=== PATIENT | female | born 1950 | race Caucasian/White ===

== ENCOUNTER → 2023-08-17 10:43 | Outpatient (REF) | payer MEDICARE, OTHER, SELFPAY | LOC: HWRAD 10:43 | PROVIDERS: ATTENDING PHYSICIAN Internal Medicine Gastroenterology; FAMILY PHYSICIAN Internal Medicine Geriatric Medicine | DX: K76.0 Fatty (change of) liver, not elsewhere classified (principal) | CPT/HCPCS: 76700 ==

== ENCOUNTER → 2023-08-30 06:36 | Day surgery (SDC) | payer MEDICARE, OTHER, SELFPAY | LOC: GI 06:36 | PROVIDERS: ATTENDING PHYSICIAN Internal Medicine Gastroenterology; FAMILY PHYSICIAN Internal Medicine Geriatric Medicine | DX: Z12.11 Encounter for screening for malignant neoplasm of colon (principal); K57.30 Diverticulosis of large intestine without perforation or abscess without bleeding; K64.8 Other hemorrhoids; D12.2 Benign neoplasm of ascending colon | CPT/HCPCS: 45385; 88305 ==

== ENCOUNTER → 2024-03-27 13:27 | Outpatient (REF) | payer MEDICARE, OTHER, SELFPAY | LOC: HWRAD 13:27 | PROVIDERS: ATTENDING PHYSICIAN Internal Medicine Geriatric Medicine | DX: Z00.00 Encounter for general adult medical examination without abnormal findings (principal); E78.5 Hyperlipidemia, unspecified; K21.9 Gastro-esophageal reflux disease without esophagitis; R91.1 Solitary pulmonary nodule; Z23 Encounter for immunization; E03.9 Hypothyroidism, unspecified; E66.9 Obesity, unspecified; E55.9 Vitamin D deficiency, unspecified; M76.32 Iliotibial band syndrome, left leg; R05.3 Chronic cough; M16.12 Unilateral primary osteoarthritis, left hip | CPT/HCPCS: 73200; 73502 ==

== ENCOUNTER → 2025-04-23 14:08 | Outpatient (REF) | payer MEDICARE, OTHER, SELFPAY | LOC: WDC 14:08 | PROVIDERS: ATTENDING PHYSICIAN Internal Medicine Geriatric Medicine | DX: Z12.31 Encounter for screening mammogram for malignant neoplasm of breast (principal) | CPT/HCPCS: 77063; 77067 ==

== ENCOUNTER → 2025-05-18 07:08 | Outpatient (REF) | payer MEDICARE, OTHER, SELFPAY | LOC: HWCARD 07:08 | PROVIDERS: ATTENDING PHYSICIAN Orthopaedic Surgery; FAMILY PHYSICIAN Internal Medicine Geriatric Medicine | DX: Z01.818 Encounter for other preprocedural examination (principal) | CPT/HCPCS: 93005 ==

== ENCOUNTER 2025-06-11 06:52 | Emergency (ER) | payer MEDICARE, OTHER, SELFPAY ==
[2025-06-11] VITALS (7 sets, daily range): BP systolic 103–149; BP diastolic 67–74; BMI 30.7
--- NOTE | 2025-06-11 07:27 | ED.GENMED ---
History of Present Illness
General
Chief Complaint: Abdominal Symptoms
Source: patient
Exam Limitations: none
Time Seen by Provider: 06/11/25 07:27
History of Present Illness
History of Present Illness:
74-year-old female had hip replacement surgery done 3 days ago. This morning at 5 AM woke with epigastric pain. Lasted half an hour to 45 minutes. Resolved at [address] to the hospital symptoms recurred. Now resolved again. No chest
pain no shortness of breath no pleuritic pain no back pain arm pain or jaw pain. No shearing pain. No nausea vomiting or diaphoresis. History of hiatal hernia. Patient has been on aspirin and pain management.
Past History
Past History
ED Past Medical History: HTN and Hypothyroidism
ED Past Surgical History: Orthopedic
Social History
Tobacco: Non-smoker
Alcohol: None
Drug: None
Review of Systems
Review of Systems
All Other Systems: Not applicable
Constitutional: Denies fever
Respiratory: Reports no symptoms
Cardiac: Denies chest pain or syncope
Phy Exam
Physical Exam
Physical Exam:
GENERAL: Alert and oriented in no apparent distress
EYE: Orbits normal.
NECK: Supple
CARDIAC: Regular rate and rhythm without any obvious murmurs.
LUNGS: Clear breath sounds,normal
ABDOMEN: Soft, without focal tenderness or distention. Specifically no epigastric or right upper quadrant tenderness
NEUROLOGICAL: Alert and oriented , grossly non-focal
SKIN: Warm and dry, no rash or lesion, no discoloration, skin intact.
MUSCULOSKELETAL: Mild left lower extremity edema. Good distal pulses and color. Well-healing suture site
PSYCH: Normal and appropriate interaction.
Course
Orders/Labs/Results
Orders:
Orders
06/11/25 07:12
Electrocardiogram (*1) Urgent
Reason for Study: Abdominal Pain
EKG- Treatment ONCE
06/11/25 07:38
IV Insert/Care/Rem.- Treatment PRN
US Periph Venous LOWER Ext LT Urgent
Comment:
Reason For Exam: Post hip replacement. Left leg swelling
06/11/25 07:39
CR Obstruct Series W/pa Chest Urgent
Comment:
Reason For Exam: Epigastric pain
US Abdomen Complete/Upper Urgent
Comment:
Reason For Exam: Epigastric pain
06/11/25 10:16
Complete Blood Count/With Diff Urgent
Comprehensive Metabolic Panel Urgent
Lipase Urgent
Troponin I Urgent
Abnormal Lab Results
06/11/25
10:16
RBC 3.29 L 10^6/uL
(4.20-5.40)
Hgb 9.9 L g/dL
(12.0-16.0)
Hct 29.2 L %
(37.0-47.0)
Abs Immat Gran (auto) 0.1 H 10^3/uL
(0-0.05)
Absolute Neuts (auto) 7.2 H 10^3/uL
(1.4-6.5)
Absolute Monos (auto) 0.7 H 10^3/uL
(0.1-0.6)
Immature Gran % 0.7 H %
(0-0.5)
BUN 30 H mg/dl
(7-17)
Creatinine 1.1 H mg/dL
(0.6-1.0)
AST 70 H U/L
(14-36)
ALT 45 H U/L
(0-35)
06/11/25 10:16
06/11/25 10:16
Vital Signs
Initial and Last Documented VS:
Initial Vital Signs
Temp Pulse Resp BP Pulse Ox
98 F 85 16 116/69 98
06/11/25 07:07 06/11/25 07:07 06/11/25 07:07 06/11/25 07:07 06/11/25 07:07
Last Documented Vital Signs
Temp Pulse Resp BP Pulse Ox
98 F 78 22 149/70 95
06/11/25 07:07 06/11/25 07:45 06/11/25 07:45 06/11/25 07:44 06/11/25 07:45
MDM/Problems Addressed
Differential Diagnosis Includes:
Patient with transient epigastric pain. Currently resolved. Highly doubt cardiac but will do cardiac testing and repeat troponin in 3 hours for completeness. Highly doubt pulmonary emboli. Symptoms have resolved they are nonpleuritic there is no
shortness of breath is very specifically epigastric in nature which would be atypical. She is not tachycardic she is not tachypneic she has a normal pulse ox. Do not feel CT of the chest is warranted. We will however do a leg ultrasound for
completeness. Highly doubt significant abdominal process. Her abdomen is totally benign at this time. Gallbladder unlikely but we will check LFTs lipase and ultrasound her gallbladder. Likely all postoperative medication related and/or
constipation issues.
*Radiology
Radiology exam reviewed: radiology read reviewed (Negative leg ultrasound negative abdominal ultrasound) and other (Constipation. 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
*Pulse Oximetry
SaO2: 98
Oxygen Mode of Delivery: Room air
Patient hypoxic: no
*EKG
Interpreted by ED Provider?: Yes
Interpretation: normal
Comparison EKG: no changes
Heart Rate: 69
Rate: normal
Rhythm: sinus
[place]: normal axis
Interval: normal interval
QRS Pattern: normal QRS
*Critical Care Note
Total Time (30-74mins, 75-104mins- exclusive of procedures): Not Applicable
Data Reviewed
Review of Other/Old Records Reveals: Labs, Records and Testing
Update Note
Update Note:
Patient is remained medically stable and asymptomatic. Troponin was essentially a second troponin based on timing and is negative. Very low suspicion for cardiac. Ultrasound is negative. Highly doubt pulmonary emboli. No serious etiology found.
Is somewhat anemic but this is postoperative. Has had mild transaminitis in the past. Not describing melena or bloody or dark stool. Stable for discharge to follow-up
ED Attending Note
-
Portions of this chart may have been created with voice recognition software.� Occasional wrong word or��sound alike� substitutions may have occurred due to the inherent limitations of voice recognition software.
Discharge Plan
Departure
Patient Disposition: Home (Routine Discharge)
Date of Disposition: 06/11/25
Time of Disposition: 12:24
Patient with high blood pressure during this ER visit?: Yes
Discharge Problem:
Transient epigastric pain, Recent hip replacement, Postoperative anemia, Transaminitis
Instructions: Constipation, Adult (DC), Abdominal Pain, BLOOD PRESSURE
Prescriptions:
No Action
levothyroxine 75 MCG tablet
75 mcg PO DAILY
sertraline 50 MG tablet
50 mg PO DAILY
red yeast rice 600 MG capsule
600 mg PO DAILY
Referrals:
Bruce Valencia MD [Family Provider, Internal Medicine] - Follow up in 2-3 days
Activity Restrictions/Additional Instructions:
Return immediately with any unusual symptoms including chest pain shortness of breath fever recurrent or increased abdominal pain etc.
Interventions
Interventions:
*Risk Screen - Suicide Last Done: 06/11/25 07:07
*General Assessment Last Done: 06/11/25 07:07
*Neglect/Abuse Screening Last Done: 06/11/25 07:07
*ED COVID-19 Vaccine History Last Done: 06/11/25 07:07
*ED Influenza Vaccine History Last Done: 06/11/25 07:07
[facility] Fall Risk Assessment Tool Last Done: 06/11/25 07:41
[facility]-Ilapbmgb[facility] Assessment Last Done: 06/11/25 07:41
Discharge Date and Time
Print Language: [email or web address]
[2025-06-11 10:26] LABS: Hematocrit 29.2 % (37.0-47.0); Hemoglobin 9.9 g/dL (12.0-16.0); Mean Corp Hgb Conc. 33.9 g/dL (33.0-37.0); Mean Corpuscular Volume 88.8 fL (81.0-99.0); Nucleated Red Blood Cells % 0 %; Platelet Count 298 10^3/uL (130-400); Red Cell Dist. Width 14.1 % (11.5-14.5)
[2025-06-11 10:47] LABS: ALT (SGPT) 45 U/L (0-35); AST (SGOT) 70 U/L (14-36); Albumin 3.8 g/dl (3.5-5.0); Alkaline Phosphatase 90 U/L (38-126); Blood Urea Nitrogen 30 mg/dl (7-17); Calcium 8.9 mg/dl (8.4-10.2); Carbon Dioxide 25 mmol/L (22-30); Chloride 107 mmol/L (98-107); Estimated Creatinine Clearance 42 ml/min; Glucose 86 mg/dl (70-99); Lipase 96 U/L (23-300); Potassium 3.9 mmol/L (3.5-5.1); Sodium 139 mmol/L (135-145); Total Protein 6.4 g/dl (6.3-8.2); eGFR 53.39
[2025-06-11 10:50] LABS: Troponin I < 0.012 ng/ml
--- NOTE | 2025-06-11 13:25 | EDRN ---
Reviewed discharge instructions with patient. Verbalized understanding. Ambulated with steady gait to the lobby.
== END 2025-06-11 13:00 | disposition home or self-care (01) ==
LOC: EMR 06:52
PROVIDERS: EMERGENCY PHYSICIAN Emergency Medicine; FAMILY PHYSICIAN Internal Medicine Geriatric Medicine
DX: R10.13 Epigastric pain (principal); Z96.649 Presence of unspecified artificial hip joint; D64.9 Anemia, unspecified; R74.01 Elevation of levels of liver transaminase levels; K59.00 Constipation, unspecified; I10 Essential (primary) hypertension; E03.9 Hypothyroidism, unspecified; K44.9 Diaphragmatic hernia without obstruction or gangrene; R60.0 Localized edema
CPT/HCPCS: 99284; 74022; 76700; 80053; 83690; 84484; 85025; 93005; 93971